=== PATIENT | female | born 1995 | race Hispanic/Latino ===

== ENCOUNTER 2017-10-27 22:38 | Emergency (ER) | payer SELFPAY ==
[2017-10-27] MEDS ORDERED: Sulfameth/Trimethoprim DS 800-160mg TAB ONE (23:13)
[2017-10-27] MEDS ORDERED: Adacel (T-DAP) 0.5 ML VIAL ONE (23:22)
== END 2017-10-27 23:25 ==
LOC: NAV ERS 22:38
DX: L02.414 Cutaneous abscess of left upper limb (principal); D64.9 Anemia, unspecified; F15.10 Other stimulant abuse, uncomplicated
CPT/HCPCS: 87070; 87076; 87205; 90471; 90715

== ENCOUNTER 2017-12-14 20:43 | Emergency (ER) | payer SELFPAY ==
[2017-12-14] MEDS ORDERED: Adacel (T-DAP) 0.5 ML VIAL ONE (20:54)
[2017-12-14] MEDS ORDERED: Lidocaine 1% 20 ML MDV ONE (21:01)
[2017-12-14 21:15] LABS: #Basophils 0.1 thou/uL (0.0-0.2); #Eosinphils 0.1 thou/uL (0.0-0.7); #Lymphocytes 1.8 thou/uL (1.20-3.40); #Monocytes 0.6 thou/uL (0.11-0.59); #Neutrophils 4.5 thou/uL (1.40-6.50); %Basophils 0.9 % (0.0-1.0); %Lymphocytes 25.7 % (21.0-51.0); %Monocytes 7.9 % (0.0-10.0); %Neutrophils 64.5 % (42.0-75.0); Hemoglobin 12.8 g/dL (12.0-16.0); Mean Corpuscular HGB CONC 31.2 g/dL (32.0-36.0); Mean Corpuscular Hemoglobin 27.6 pg (27.0-31.0); Mean Corpuscular Volume 88.5 fL (78.0-98.0); Mean Platelet Volume 8.9 fL (7.4-10.4); Platelet Count 259 thou/uL (130-400); RBC Distribution Width 14.2 % (11.5-14.5); Red Blood Cell (RBC) Count 4.64 mill/uL (4.20-5.40)
[2017-12-14] MEDS ORDERED: Triple Antibiotic Oint 1 GM Packet ONE (21:31)
[2017-12-14 21:38] LABS: ALT (SGPT) 10 U/L (8-55); AST (SGOT) 11 U/L (5-34); Acetaminophen Less than 6.0 mcg/mL (10.0-30.0); Albumin 4.4 g/dL (3.5-5.0); Alcohol Less than 10 mg/dL (Less than 10); Alkaline Phosphatase 56 U/L (40-150); Anion Gap 14 mmol/L (10-20); BUN (Urea Nitrogen) 15 mg/dL (7.0-18.7); Bilirubin, Total 0.2 mg/dL (0.2-1.2); Calc. Creatinine Clearance 0 mL/min (70-130); Calcium 9.7 mg/dL (7.8-10.44); Carbon Dioxide 24 mmol/L (22-29); Chloride 106 mmol/L (98-107); Estimated GFR-MDRD 88; Globulin 3.5 g/dL (2.4-3.5); Glucose 101 mg/dL (70-105); Potassium 4.3 mmol/L (3.5-5.1); Protein, Total 7.9 g/dL (6.0-8.3); Salicylate Less than 8.0 mg/dL (15.0-30.0); Sodium 140 mmol/L (136-145)
[2017-12-14 21:51] LABS: Bilirubin Negative (Negative); Blood, Urine Trace (Negative); Glucose, Urine (Dipstick) Negative (Negative); Leukocyte Large (Negative); Nitrite Negative (Negative); Protein, Urine (Dipstick) Trace mg/dL (Neg-Trace); Urobilinogen 0.2 mg/dL (0.2-1.0)
[2017-12-14 21:53] LABS: Clarity Hazy (Clear)
[2017-12-14 21:55] LABS: Pregnancy Test - Urine (BHCG) Negative (Negative); Pregu Control Background? CLEAR/WHITE (CLR/WHITE); Pregu Control Bar Appear? YES (CONTROL BAR)
[2017-12-14 21:58] LABS: Bacteria/HPF 2+ HPF (None Seen); RBC/HPF 0-3 HPF (0-3); Squamous Epithelial 21-50 HPF (0-3)
[2017-12-14 21:59] LABS: Trichomonas/HPF 1+ HPF (None Seen)
[2017-12-14 22:03] LABS: Amphetamine Not Detected (NotDetected); Barbiturates Screen Not Detected (NotDetected); Benzodiazepine Screen Not Detected (NotDetected); Cocaine Metabolite Screen Not Detected (NotDetected); Medtox Control Line Valid? VALID (VALID); Methadone Not Detected (NotDetected); Methamphetamine Not Detected (NotDetected); Opiate Screen Not Detected (NotDetected); Oxycodone Screen Not Detected (NotDetected); Phencyclidine (PCP) Not Detected (NotDetected); THC/Cannabinoid Screen Not Detected (NotDetected); Tricyclic Screen Not Detected (NotDetected)
[2017-12-14] MEDS ORDERED: metroNIDAZOLE 500 MG TAB ONE (22:10)
== END 2017-12-14 23:59 ==
LOC: NAV ERS 20:43
DX: S51.812A Laceration without foreign body of left forearm, initial encounter (principal); S61.512A Laceration without foreign body of left wrist, initial encounter; A59.01 Trichomonal vulvovaginitis; F41.9 Anxiety disorder, unspecified; F32.9 Major depressive disorder, single episode, unspecified; D64.9 Anemia, unspecified; X78.8XXA Intentional self-harm by other sharp object, initial encounter
CPT/HCPCS: 12004; 80053; 80306; 80307; 81003; 81015; 81025; 85025; 90471; 90715; J2001